=== PATIENT | female | born 1960 | race Caucasian/White ===

== ENCOUNTER 2016-10-13 15:55 | Emergency (ER) | payer OTHER ==
--- NOTE | 2016-10-13 16:48 | DIAGNOSTIC IMAGING REPORT ---
PROCEDURE: XR FOOT 3 VIEWS - RIGHT INDICATION: Stepped on by horse, initial encounter. TECHNIQUE: Three views. COMPARISON: None. FINDINGS: Prominent soft tissue swelling of the dorsum of the foot. Cortical irregularity on the lateral view of what appears to be the distal first metatarsal, not corroborated on additional views. Normal joint spaces. IMPRESSION: 1. Questionable cortical fracture of the distal first metatarsal 2. Prominent soft tissue swelling over the dorsum of the foot 3. Results discussed with Dr. Ruiz
--- NOTE | 2016-10-13 17:05 | ED NURSING NOTES ---
Clinical Report - Nurses [facility] [place] [address] 10/13/2016 15:58 [id number] TRI[facility] Triage time 16:05 Oct 13 2016. Acuity: LEVEL 3. Chief Complaint: INJURY TO RIGHT FOOT. INJURY TO THE RIGHT FOOT. Alert. DESHAWN COMA SCORE: [place] Coma Scale: 15- eyes open spontaneously (4); best verbal response- oriented x 4 (5); best motor response- obeys commands (6). --16:15 Wilber Varela R.N. Acuity: LEVEL 3. Alert. --16:17 Wilber Varela R.N. 16:15 10/13/16. BP: 131/82. HR: 92. RR: 16. O2 saturation: 96% on room air. Temp: 98.9 F (oral). Pain level now: 10/12. Additional comments: (R) Foot pain. --16:17 Wilber Varela R.N. Weight: 97.5 kg stated. Height/Length: 71 inches Per Patient. BMI: 30. --16:12 Wilber Varela R.N. Medications [place] Thyroid Oral. --16:11 Wilber Varela R.N. Glucosamine Oral. --16:11 Wilber Varela R.N. Allergies No Known Drug Allergy. --16:11 Wilber Varela R.N. History Arrived by private vehicle. Historian: patient. [facility] ( (R) Foot Pain after being stepped on by a draft horse.). This occurred just prior to arrival and today. ( Stepped on by horse.). She has had trouble walking. 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 PAST MEDICAL HX: Tetanus status: up-to-date. Immunizations: up-to-date. SOCIAL HX: Former smoker, end date 1998. Alcohol use; consumes three wine weekly. No infectious disease exposure. ABUSE ASSESSMENT: No report of abuse. FALL RISK ASSESSMENT: Fall risk assessment completed. No fall risk identified. NUTRITIONAL RISK ASSESSMENT: The nutritional risk assessment revealed no deficiencies. LEARNING NEEDS ASSESSMENT: The learning needs assessment revealed no barriers. FUNCTIONAL ASSESSMENT: Functional assessment performed: mobility impairment present- this mobility impairment is a new problem. SKIN INTEGRITY ASSESSMENT: Skin integrity risk assessment completed. No skin integrity risk identified. --16:15 Wilber Varela R.N. PROBLEMS: Thyroid Disease. --16:10 Wilber Varela R.N. Interventions ID band on patient. To treatment room. --16:15 Wilber Varela R.N. ID band on patient. To treatment room. --16:17 Wilber Varela R.N. NURSING PROGRESS NOTES 16:10. Patient gowned. Reassurance given. Patient identifiers checked. Call light placed in reach. Side rails up x 1. Patient ready for evaluation- chart flagged and ED physician notified. --16:57 Wilber Varela R.N. 16:15. Cold pack applied to the right foot. --16:57 Wilber Varela R.N. 17:00. Short leg posterior fiberglass lower extremity splint applied to right foot by tech. Distal pulses intact, sensation intact and motor within normal limits. --18:54 Valeri Newberry 17:00. Patient fit with new crutches. Crutch training performed by [employer]; the patient demonstrated proper use. --18:55 Valeri Newberry. DISPOSITION / DISCHARGE Departure time: 1720. --22:50 Wilber Varela R.N. 17:15 10/13/16. BP: 126/73. HR: 83. RR: 16. O2 saturation: 99% on room air. Temp: 98.7 F (oral). Pain level now: 12/12. --22:59 Wilber Varela R.N. 17:20. Condition at departure: improved. No learning barriers present. Discharge instructions provided and reviewed with the patient. Reviewed medication(s) (prescription given to pt). Treatments reviewed (elevate affected extremity and ice packs as per discharge instructions). Patient verbalized understanding. Written instructions provided in Latvian. The patient was discharged by the physician. She was discharged home and accompanied by spouse. She left the Emergency Department ambulatory and via private vehicle. Spouse driving. --23:01 Wilber Varela R.N. Locked/Released at 10/13/2016 23:01 by Wilber Varela R.N.
--- NOTE | 2016-10-13 17:05 | ED CLINICAL REPORT ---
Clinical Report - Physicians/Mid Levels [facility] [address] [place] [address] 10/13/2016 15:58 [id number] Time Seen: 16:05 Oct 13 2016. Arrived- By private vehicle. Historian- patient. CPT: ER phys charges level 3 plus (#691468). Application short leg splint (#[id number]). HISTORY OF PRESENT ILLNESS Chief Complaint: Injury to the right foot. The injury happened just prior to arrival. The patient sustained a direct blow (Draft horse stepped on the foot.). Occurred at home. Patient is experiencing moderate pain. No other injury. REVIEW OF SYSTEMS The patient complains of pain on weight bearing. She has had swelling. No suspected foreign body or skin laceration. All systems otherwise negative, except as recorded above. PAST HISTORY See nurses notes. Tetanus immunization status is up-to-date. Medications: Glucosamine Oral. [place] Thyroid Oral. Allergies: No Known Drug Allergy. SOCIAL HISTORY Former smoker. Regular alcohol use. No drug use. ADDITIONAL NOTES The nursing notes have been reviewed. PHYSICAL EXAM Vital Signs: 10/13/2016 16:15 BP: 131/82. HR: 92. RR: 16. O2 saturation: 96%. Temp: 98.9 F. Pain level now: 3/10. Appearance: Alert. Appears to be in pain. Patient in moderate distress. CVS: Normal heart rate and rhythm. Respiratory: No respiratory distress. Back: No tenderness. Skin: Skin intact. Skin warm. Extremities: Right foot: moderate tenderness and swelling, medium sized ecchymosis and mild deformity located in the aspect of the mid foot. Limited weight bearing secondary to pain. Neurovascular intact distally. Neuro, Vascular and Tendons: Vascular status intact. Sensation intact. Motor intact. Tendon function intact. Gait: Gait not tested due to pain. Neuro: Oriented X 3. No motor deficit. No sensory deficit. LABS, X-RAYS, AND EKG X-Rays: Right foot. Rt Foot X-ray: No fracture. Normal alignment. No air in the soft tissue or foreign body. Soft tissue swelling. Views: 3 view foot series. Technique: good. The X-rays were independently viewed by me, interpreted by the radiologist and discussed with the radiologist. PROGRESS AND PROCEDURES Splint Application: Posterior fiberglass splint applied to right foot. Splint applied by tech with direct supervision by the ED physician. Reassessed extremity following splint application. Neurovascular intact. Follow-up recommended within 7 days. Fitted for crutches by the nurse. Patient/family counseled. Disposition: Discharged. Condition: stable. CLINICAL IMPRESSION Crush injury to the right foot. INSTRUCTIONS Apply ice for for one days. Use crutches until better. Wear splint until better. Elevate affected areas above chest level today, for one days until better. You may walk and bear weight as tolerated (after 3 days.). No weight bearing on right leg for three days until better. Warnings: GENERAL WARNINGS: Return or contact your physician immediately if your condition worsens or changes unexpectedly, if not improving as expected, or if other problems arise. Your Current Medications: CONTINUE TAKING THE FOLLOWING MEDICATIONS: [place] Thyroid Oral. Glucosamine Oral. Prescription Medications: Oxycodone/APAP 5 mg/325 mg: take 1-2 tablets orally every 6 hours as needed for pain. Dispense twenty (20). No refill. Understanding of the discharge instructions verbalized by patient and family. Discharge instructions reviewed (Father). Follow-up with: Reuben Soria DPM, Podiatry, , [facility], [address] [place] [address], [address] [facility], [place] [address] Follow up in one week. Call for an appointment. (Electronically signed by Krunal Ruiz MD 10/15/2016 12:22)
--- NOTE | 2016-10-13 17:05 | ED ORDER SUMMARY ---
..... Patient: MARIJA POSADAS OrderSheet [facility] VisitID: [id number] [place] [address] 56y, F Registration Date/Time: 10/13/2016 ORDER SHEET Weight: 97.5 kg (stated) Allergies: No Known Drug Allergy GENERAL ORDERS: Foot 3V Right Urgent (16:04 10/13/2016 EKoroleva P.A.-C) (Ack 16:17 RKaruga) (16:50 Lorie R.N.) Ice (16:07 10/13/2016 Bee ROMO) (16:50 Lorie R.N.) Splint (LE) (Right) (Short Leg Posterior) (Fiberglass) (17:00 10/13/2016 Bee ROMO) (17:39 Lorie R.N.) Crutches (17:01 10/13/2016 Bee ROMO) (17:39 Lorie R.N.) MEDICATION ORDERS: IV FLUIDS: ORDER SHEET NOTES: [Electronically signed by Wilber Varela R.N. (23:10/13/2016)] [Electronically signed by Krunal Ruiz MD (12:22 10/15/2016)] [Electronically locked/signed by Wilber Varela R.N. (23:10/13/2016)]
--- NOTE | 2016-10-13 17:05 | ED ORDER SUMMARY ---
..... Patient: MARIJA POSADAS OrderSheet [facility] VisitID: [id number] [place] [address] 56y, F Registration Date/Time: 10/13/2016 ORDER SHEET Weight: 97.5 kg (stated) Allergies: No Known Drug Allergy GENERAL ORDERS: Foot 3V Right Urgent (16:04 10/13/2016 EKoroleva P.A.-C) (Ack 16:17 RKaruga) (16:50 Lorie R.N.) Ice (16:07 10/13/2016 Bee ROMO) (16:50 Lorie R.N.) Splint (LE) (Right) (Short Leg Posterior) (Fiberglass) (17:00 10/13/2016 Bee ROMO) (17:39 Lorie R.N.) Crutches (17:01 10/13/2016 Bee ROMO) (17:39 Lorie R.N.) MEDICATION ORDERS: IV FLUIDS: ORDER SHEET NOTES: [Electronically signed by Wilber Varela R.N. (23:10/13/2016)] [Electronically signed by Krunal Ruiz MD (12:22 10/15/2016)] [Electronically locked/signed by Wilber Varela R.N. (23:10/13/2016)]
--- NOTE | 2016-10-13 17:05 | ED NURSING NOTES ---
Clinical Report - Nurses [facility] [place] [address] 10/13/2016 15:58 [id number] Triage time 16:05 Oct 13 2016. Acuity: LEVEL 3. Chief Complaint: INJURY TO RIGHT FOOT. INJURY TO THE RIGHT FOOT. Alert. DESHAWN COMA SCORE: [place] Coma Scale: 15- eyes open spontaneously (4); best verbal response- oriented x 4 (5); best motor response- obeys commands (6). --16:15 Wilber Varela R.N. Acuity: LEVEL 3. Alert. --16:17 Wilber Varela R.N. 16:15 10/13/16. BP: 131/82. HR: 92. RR: 16. O2 saturation: 96% on room air. Temp: 98.9 F (oral). Pain level now: 10/12. Additional comments: (R) Foot pain. --16:17 Wilber Varela R.N. Weight: 97.5 kg stated. Height/Length: 71 inches Per Patient. BMI: 30. --16:12 Wilber Varela R.N. Medications [place] Thyroid Oral. --16:11 Wilber Varela R.N. Glucosamine Oral. --16:11 Wilber Varela R.N. Allergies No Known Drug Allergy. --16:11 Wilber Varela R.N. History Arrived by private vehicle. Historian: patient. [facility] ( (R) Foot Pain after being stepped on by a draft horse.). This occurred just prior to arrival and today. ( Stepped on by horse.). She has had trouble walking. 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 PAST MEDICAL HX: Tetanus status: up-to-date. Immunizations: up-to-date. SOCIAL HX: Former smoker, end date 1998. Alcohol use; consumes three wine weekly. No infectious disease exposure. ABUSE ASSESSMENT: No report of abuse. FALL RISK ASSESSMENT: Fall risk assessment completed. No fall risk identified. NUTRITIONAL RISK ASSESSMENT: The nutritional risk assessment revealed no deficiencies. LEARNING NEEDS ASSESSMENT: The learning needs assessment revealed no barriers. FUNCTIONAL ASSESSMENT: Functional assessment performed: mobility impairment present- this mobility impairment is a new problem. SKIN INTEGRITY ASSESSMENT: Skin integrity risk assessment completed. No skin integrity risk identified. --16:15 Wilber Varela R.N. PROBLEMS: Thyroid Disease. --16:10 Wilber Varela R.N. Interventions ID band on patient. To treatment room. --16:15 Wilber Varela R.N. ID band on patient. To treatment room. --16:17 Wilber Varela R.N. NURSING PROGRESS NOTES 16:10. Patient gowned. Reassurance given. Patient identifiers checked. Call light placed in reach. Side rails up x 1. Patient ready for evaluation- chart flagged and ED physician notified. --16:57 Wilber Varela R.N. 16:15. Cold pack applied to the right foot. --16:57 Wilber Varela R.N. 17:00. Short leg posterior fiberglass lower extremity splint applied to right foot by tech. Distal pulses intact, sensation intact and motor within normal limits. --18:54 Valeri Newberry 17:00. Patient fit with new crutches. Crutch training performed by [employer]; the patient demonstrated proper use. --18:55 Valeri Newberry. DISPOSITION / DISCHARGE Departure time: 1720. --22:50 Wilber Varela R.N. 17:15 10/13/16. BP: 126/73. HR: 83. RR: 16. O2 saturation: 99% on room air. Temp: 98.7 F (oral). Pain level now: 12/12. --22:59 Wilber Varela R.N. 17:20. Condition at departure: improved. No learning barriers present. Discharge instructions provided and reviewed with the patient. Reviewed medication(s) (prescription given to pt). Treatments reviewed (elevate affected extremity and ice packs as per discharge instructions). Patient verbalized understanding. Written instructions provided in Lao. The patient was discharged by the physician. She was discharged home and accompanied by spouse. She left the Emergency Department ambulatory and via private vehicle. Spouse driving. --23:01 Wilber Varela R.N. Locked/Released at 10/13/2016 23:01 by Wilber Varela R.N.
--- NOTE | 2016-10-13 17:05 | ED CLINICAL REPORT ---
Clinical Report - Physicians/Mid Levels [facility] [address] [place] [address] 10/13/2016 15:58 [id number] Time Seen: 16:05 Oct 13 2016. Arrived- By private vehicle. Historian- patient. CPT: ER phys charges level 3 plus (#992011). Application short leg splint (#[id number]). HISTORY OF PRESENT ILLNESS Chief Complaint: Injury to the right foot. The injury happened just prior to arrival. The patient sustained a direct blow (Draft horse stepped on the foot.). Occurred at home. Patient is experiencing moderate pain. No other injury. REVIEW OF SYSTEMS The patient complains of pain on weight bearing. She has had swelling. No suspected foreign body or skin laceration. All systems otherwise negative, except as recorded above. PAST HISTORY See nurses notes. Tetanus immunization status is up-to-date. Medications: Glucosamine Oral. [place] Thyroid Oral. Allergies: No Known Drug Allergy. SOCIAL HISTORY Former smoker. Regular alcohol use. No drug use. ADDITIONAL NOTES The nursing notes have been reviewed. PHYSICAL EXAM Vital Signs: 10/13/2016 16:15 BP: 131/82. HR: 92. RR: 16. O2 saturation: 96%. Temp: 98.9 F. Pain level now: 3/10. Appearance: Alert. Appears to be in pain. Patient in moderate distress. CVS: Normal heart rate and rhythm. Respiratory: No respiratory distress. Back: No tenderness. Skin: Skin intact. Skin warm. Extremities: Right foot: moderate tenderness and swelling, medium sized ecchymosis and mild deformity located in the aspect of the mid foot. Limited weight bearing secondary to pain. Neurovascular intact distally. Neuro, Vascular and Tendons: Vascular status intact. Sensation intact. Motor intact. Tendon function intact. Gait: Gait not tested due to pain. Neuro: Oriented X 3. No motor deficit. No sensory deficit. LABS, X-RAYS, AND EKG X-Rays: Right foot. Rt Foot X-ray: No fracture. Normal alignment. No air in the soft tissue or foreign body. Soft tissue swelling. Views: 3 view foot series. Technique: good. The X-rays were independently viewed by me, interpreted by the radiologist and discussed with the radiologist. PROGRESS AND PROCEDURES Splint Application: Posterior fiberglass splint applied to right foot. Splint applied by tech with direct supervision by the ED physician. Reassessed extremity following splint application. Neurovascular intact. Follow-up recommended within 7 days. Fitted for crutches by the nurse. Patient/family counseled. Disposition: Discharged. Condition: stable. CLINICAL IMPRESSION Crush injury to the right foot. INSTRUCTIONS Apply ice for for one days. Use crutches until better. Wear splint until better. Elevate affected areas above chest level today, for one days until better. You may walk and bear weight as tolerated (after 3 days.). No weight bearing on right leg for three days until better. Warnings: GENERAL WARNINGS: Return or contact your physician immediately if your condition worsens or changes unexpectedly, if not improving as expected, or if other problems arise. Your Current Medications: CONTINUE TAKING THE FOLLOWING MEDICATIONS: [place] Thyroid Oral. Glucosamine Oral. Prescription Medications: Oxycodone/APAP 5 mg/325 mg: take 1-2 tablets orally every 6 hours as needed for pain. Dispense twenty (20). No refill. Understanding of the discharge instructions verbalized by patient and family. Discharge instructions reviewed (Father). Follow-up with: Reuben Soria DPM, Podiatry, , [facility], [address] [place] [address], [address] [facility], [place] [address] Follow up in one week. Call for an appointment. (Electronically signed by Krunal Ruiz MD 10/15/2016 12:22)
--- NOTE | 2016-10-15 12:22 | ED DISCHARGE INSTRUCTIONS ---
Patient: MARIJA POSADAS General Instructions [facility] VisitID: [id number] [place] [address] 56y, F Registration Date/Time: 10/13/2016 Crush injury to the right foot. INSTRUCTIONS Apply ice for for one days. Use crutches until better. Wear splint until better. Elevate affected areas above chest level today, for one days until better. You may walk and bear weight as tolerated (after 3 days.). No weight bearing on right leg for three days until better. Warnings: GENERAL WARNINGS: Return or contact your physician immediately if your condition worsens or changes unexpectedly, if not improving as expected, or if other problems arise. Your Current Medications: CONTINUE TAKING THE FOLLOWING MEDICATIONS: [place] Thyroid Oral. Glucosamine Oral. Prescription Medications: Oxycodone/APAP 5 mg/325 mg: take 1-2 tablets orally every 6 hours as needed for pain. Dispense twenty (20). No refill. Understanding of the discharge instructions verbalized by patient and family. Discharge instructions reviewed (Father). Follow-up with: Reuben Soria DPM, Podiatry, , [facility], [address] [place] [address], [address], [place] [address] Follow up in one week. Call for an appointment. ADDITIONAL INFORMATION Crush Injury, Foot (No Fx) A crush injury to your foot causes local pain, swelling, and sometimes bruising. There are no broken bones. This injury takes from a few days to a few weeks to heal. If the toenail has been severely injured, it may fall off in 12 weeks. A new one will usually start to grow back within a month. Home care The following guidelines will help you care for your wound at home: You may be given a splint, cast, shoe, or boot to prevent movement at the injury. Unless you were told otherwise, use crutches or a walker anddo notbear weight on the injured foot until cleared by your doctor to do so. (Crutches and walkers can be rented at many pharmacies and surgical/orthopedic supply stores). Do not put weight on a splint; it will break. Keep your leg elevated to reduce pain and swelling. When sleeping, place a pillow under the injured leg. When sitting, support the injured leg so it is level with your waist. This is very important during the first 48 hours. Apply an ice pack (ice cubes in a plastic bag, wrapped in a towel) over the injured area for 20 minutes every 12 hours the first day for pain relief. Continue this 34 times a day until the pain and swelling goes away. You may use acetaminophen or ibuprofen to control pain, unless another pain medicine was prescribed.If you have chronic liver or kidney disease or ever had a stomach ulcer or GI bleeding, talk with your doctor before using these medicines. Keep the splint/cast/boot/shoe dry. When bathing, protect it with a large plastic bag, rubber-banded at the top end. If a fiberglass splint/cast or boot gets wet, you can dry it with a hair-dryer. Unless told otherwise, you can remove a boot or shoe to bathe. If your injury includes exposed cuts or scrapes, clean these daily with soap and water. Apply antibiotic ointment. Watch for the signs of infection listed below. Follow-up care Follow up with your doctor as advised. Return sooner if you are not starting to improve within the nextthreedays. If you were given a splint, it may be changed to a cast or boot at your follow-up visit. Note:X-rays will be reviewed by a radiologist. You will be notified of any new findings that may affect your care. When to seek medical care Get prompt medical attention if any of the following occur: The plaster cast or splint becomes wet or soft The fiberglass cast or splint remains wet for more than 24 hours Increased tightness or pain under the cast or splint Toes become swollen, cold, blue, numb, or tingly Redness, warmth, swelling, drainage from the wound, or foul odor from a cast or splint Fever of 100.4F(38C) or higher, or as directed by your health care provider Crutch Walking Crutch Adjustment Make sure the crutches you use are adjusted to fit you. When you stand, there should be room to fit 2-3 fingers between the top of the crutch and your armpit. Your elbow should be slightly bent when holding the hand disposal worker. Crutch Walking: Place the crutches forward 12" in front of and 6" to the side of your feet. Lean your weight forward as you push down on the handgrips. Your weight should be on your hands and yourstrong leg, not your armpits . Let your body swing through, landing on the strong leg. Advance the crutches forward again. The crutch and the injured leg should move together. Going Up Steps: ("Up with the good") With both crutches on the same step as your feet, push down on the handgrips. Balancing with very light pressure on the weak leg, let your hands support your weight as you raise your strong leg onto the next higher step. Transfer all your weight to your strong leg (still bent) as you move the crutches up to the next step alongside the strong leg. With your weight evenly balanced on the two crutches and your strong leg, straighten your strong knee as you raise the weak leg up to the next step. Going Down Steps: ("Down with the bad") With both crutches on the same step as your feet, push down on the handgrips. With your weight evenly balanced on the two crutches and your strong leg, bend your strong knee as you lower the weak leg down to the next step. Let your strong leg support you (still bent) as you move the crutches down alongside the weak leg. Transfer your weight to your hands, balancing with very light pressure on the weak leg as you lower your strong leg alongside your weak leg. Splint Care, Fiberglass The following will help you care for your splint: It will take up totwo hours for your fiber glass splint to fully harden; therefore, do notapply any pressure on it during that time or else it may break. To prevent swelling under the splint, for thefirst 48 hours: If the splint is on yourarm, keep it in a sling or raised to shoulder level when sitting or standing; rest it on your chest or on a pillow at your side when lying down. If the splint is on yourfoot, keep it propped up above the level of your waist when sitting or lying. Avoid crutch walking as much as possible during this time. Keep the splint/cast dry at all times. Bathe with your splint/cast well out of the water, protected with a large plastic bag, rubber-banded at the top end. If a fiberglass cast or splint gets wet, you can dry it with a hair-dryer. Follow-up care Follow up with your doctor or this facility as advised. When to seek medical care Get prompt medical attention if any of the following occur: Bad odor from the splint or wound-fluid stains the splint The splint cracks or remains wet over 24 hours Increasing tightness or pressure under the splint Fingers or toes become swollen, cold, blue, numb or tingly Increased pain under the splint Oxycodone Hydrochloride, Acetaminophen Oral tablet What is this medicine? ACETAMINOPHEN; OXYCODONE (a set a JUSTA mickey fen; ox i KOE done) is a pain reliever. It is used to treat mild to moderate pain. How should I use this medicine? Take this medicine by mouth with a full glass of water. Follow the directions on the prescription label. Take your medicine at regular intervals. Do not take your medicine more often than directed. Talk to your cold rolling supervisor regarding the use of this medicine in children. Special care may be needed. Patients over 65 years old may have a stronger reaction and need a smaller dose. What side effects may I notice from receiving this medicine? Side effects that you should report to your doctor or health career guidance technician as soon as possible: allergic reactions like skin rash, itching or hives, swelling of the face, lips, or tongue breathing difficulties, wheezing confusion light headedness or fainting spells severe stomach pain yellowing of the skin or the whites of the eyes Side effects that usually do not require medical attention (report to your doctor or health career guidance technician if they continue or are bothersome): dizziness drowsiness nausea vomiting What may interact with this medicine? alcohol antihistamines barbiturates like amobarbital, butalbital, butabarbital, methohexital, pentobarbital, phenobarbital, thiopental, and secobarbital benztropine drugs for bladder problems like solifenacin, trospium, oxybutynin, tolterodine, hyoscyamine, and methscopolamine drugs for breathing problems like ipratropium and tiotropium drugs for certain stomach or intestine problems like propantheline, homatropine methylbromide, glycopyrrolate, atropine, belladonna, and dicyclomine general anesthetics like etomidate, ketamine, nitrous oxide, propofol, desflurane, enflurane, halothane, isoflurane, and sevoflurane medicines for depression, anxiety, or psychotic disturbances medicines for sleep muscle relaxants naltrexone narcotic medicines (opiates) for pain phenothiazines like perphenazine, thioridazine, chlorpromazine, mesoridazine, fluphenazine, prochlorperazine, promazine, and trifluoperazine scopolamine tramadol trihexyphenidyl What if I miss a dose? If you miss a dose, take it as soon as you can. If it is almost time for your next dose, take only that dose. Do not take double or extra doses. Where should I keep my medicine? Keep out of the reach of children. This medicine can be abused. Keep your medicine in a safe place to protect it from theft. Do not share this medicine with anyone. Selling or giving away this medicine is dangerous and against the law. Store at room temperature between 20 and 25 degrees C (68 and 77 degrees F). Keep container tightly closed. Protect from light. This medicine may cause accidental overdose and if it is taken by other adults, children, or pets. Flush any unused medicine down the toilet to reduce the chance of harm. Do not use the medicine after the expiration date. What should I tell my health care provider before I take this medicine? They need to know if you have any of these conditions: brain tumor Crohn's disease, inflammatory bowel disease, or ulcerative colitis drink more than 3 alcohol containing drinks per day drug abuse or addiction head injury heart or circulation problems kidney disease or problems going to the bathroom liver disease lung disease, asthma, or breathing problems an unusual or allergic reaction to acetaminophen, oxycodone, other opioid analgesics, other medicines, foods, dyes, or preservatives or trying to get breast-feeding What should I watch for while using this medicine? Tell your doctor or health career guidance technician if your pain does not go away, if it gets worse, or if you have new or a different type of pain. You may develop tolerance to the medicine. Tolerance means that you will need a higher dose of the medication for pain relief. Tolerance is normal and is expected if you take this medicine for a long time. Do not suddenly stop taking your medicine because you may develop a severe reaction. Your body becomes used to the medicine. This does NOT mean you are addicted. Addiction is a behavior related to getting and using a drug for a non-medical reason. If you have pain, you have a medical reason to take pain medicine. Your doctor will tell you how much medicine to take. If your doctor wants you to stop the medicine, the dose will be slowly lowered over time to avoid any side effects. You may get drowsy or dizzy. Do not drive, use machinery, or do anything that needs mental alertness until you know how this medicine affects you. Do not stand or sit up quickly, especially if you are an older patient. This reduces the risk of dizzy or fainting spells. Alcohol may interfere with the effect of this medicine. Avoid alcoholic drinks. There are different types of narcotic medicines (opiates) for pain. If you take more than one type at the same time, you may have more side effects. Give your health care provider a list of all medicines you use. Your doctor will tell you how much medicine to take. Do not take more medicine than directed. Call emergency for help if you have problems breathing. The medicine will cause constipation. Try to have a bowel movement at least every 2 to 3 days. If you do not have a bowel movement for 3 days, call your doctor or health career guidance technician. Do not take Tylenol (acetaminophen) or medicines that have acetaminophen with this medicine. Too much acetaminophen can be very dangerous. Many nonprescription medicines contain acetaminophen. Always read the labels carefully to avoid taking more acetaminophen. You have been given the following additional information: Crush Injury, Foot/Toe Crutch Walking Splint Care, Fiberglass Oxycodone Hydrochloride, Acetaminophen Oral tablet You may walk and bear weight as tolerated (after 3 days.). No weight bearing on right leg for three days until better. (Electronically signed by Krunal Ruiz MD 10/15/2016 12:22)
--- NOTE | 2016-10-15 12:22 | ED MED RECONCILIATION SUMMARY ---
Patient: MARIJA POSADAS Medication Reconciliation Report [facility] VisitID: [id number] [address] [place] [address] 56y, F Registration Date/Time: 10/13/2016 Weight: 97.5 kg Height/Length: 71 in. BMI: 30.0 ALLERGIES: No Known Drug Allergy The patient's Home Medications are listed below: CONTINUE TAKING THE FOLLOWING MEDICATIONS: [place] Thyroid Oral Glucosamine Oral The source(s) of the original Home Medication information: Not obtained. The following Medications were given to the patient in the Emergency Department: None. The following Medications were prescribed to the patient: Oxycodone/APAP 5 mg/325 mg: take 1-2 tablets orally every 6 hours as needed for pain. Dispense twenty (20). No refill. -- Krunal Ruiz MD
--- NOTE | 2016-10-15 12:22 | ED MAR SUMMARY ---
..... Medication Administration Record [facility] [address] [place], [place] [id number] Patient: MARIJA POSADAS Visit ID: [id number] 56y, F Weight: 97.5 kg Height/Length: 71 in BMI: 30 ALLERGIES: No Known Drug Allergy
--- NOTE | 2016-10-15 12:22 | ED MED RECONCILIATION SUMMARY ---
Patient: MARIJA POSADAS Medication Reconciliation Report [facility] VisitID: [id number] [address] [place] [address] 56y, F Registration Date/Time: 10/13/2016 Weight: 97.5 kg Height/Length: 71 in. BMI: 30.0 ALLERGIES: No Known Drug Allergy The patient's Home Medications are listed below: CONTINUE TAKING THE FOLLOWING MEDICATIONS: [place] Thyroid Oral Glucosamine Oral The source(s) of the original Home Medication information: Not obtained. The following Medications were given to the patient in the Emergency Department: None. The following Medications were prescribed to the patient: Oxycodone/APAP 5 mg/325 mg: take 1-2 tablets orally every 6 hours as needed for pain. Dispense twenty (20). No refill. -- Krunal Ruiz MD
--- NOTE | 2016-10-15 12:22 | ED MAR SUMMARY ---
..... Medication Administration Record [facility] [address] [place], [place] [id number] Patient: MARIJA POSADAS Visit ID: [id number] 56y, F Weight: 97.5 kg Height/Length: 71 in BMI: 30 ALLERGIES: No Known Drug Allergy
== END 2016-10-13 17:20 | disposition home or self-care (01) ==
LOC: ED SRH 15:55
DX: S97.81XA Crushing injury of right foot, initial encounter (principal); W55.19XA Other contact with horse, initial encounter; Y93.9 Activity, unspecified; Y92.009 Unspecified place in unspecified non-institutional (private) residence as the place of occurrence of the external cause; Y99.9 Unspecified external cause status; Z79.899 Other long term (current) drug therapy